=== PATIENT | female | born 1990 | race African-American/Black ===

== ENCOUNTER 2020-01-22 09:52 | Emergency (ER) | payer MEDICAID ==
[~2020-01-22] VITALS: Ht 175.3 cm; Wt 91.0 kg
[~2020-01-22 09:52] MED LIST: FERR-63 PO; PREN-88 PO
[2020-01-22 12:15] VITALS: BP 116/65
== END 2020-01-22 12:21 | disposition home or self-care (01) ==
LOC: ER 09:52
DX: G89.29 Other chronic pain (principal); M25.562 Pain in left knee; M25.561 Pain in right knee; R51 Headache
CPT/HCPCS: 81025; 99283